=== PATIENT | male | born 1970 | race Caucasian/White ===

== ENCOUNTER 2020-04-26 13:00 | Outpatient (CLI) | payer OTHER, SELFPAY ==
[2020-04-26 13:40] LABS: SARS-CoV-2 Ag Negative (Negative)
== END 2020-04-26 13:01 | disposition home or self-care (01) ==
PROVIDERS: PCP Physician Assistant; Visit Provider Physician Assistant
DX: Z20.822 Contact with and (suspected) exposure to COVID-19 (principal)
CPT/HCPCS: 87426; C9803

== ENCOUNTER 2020-09-15 12:44 | Outpatient (CLI) | payer OTHER, SELFPAY ==
[2020-09-15 13:17] LABS: SARS-CoV-2 Ag Negative (Negative)
== END 2020-09-15 12:45 | disposition home or self-care (01) ==
PROVIDERS: PCP Physician Assistant; Visit Provider Physician Assistant
DX: B34.9 Viral infection, unspecified (principal); Z20.822 Contact with and (suspected) exposure to COVID-19
CPT/HCPCS: 87426; C9803